=== PATIENT | female | born 1980 | race Native Hawaiian/Other Pacific Islander ===

== ENCOUNTER 2018-04-08 22:48 | Inpatient (IN) | payer OTHER ==
[2018-04-08] MEDS ORDERED: ACTIVASE IV ONE ×2 (22:58)
[2018-04-08] MEDS ORDERED: NACL 0.9% IV ONE (22:58)
--- NOTE | 2018-04-08 23:04 | Emergency Department Report ---
ED Neuro Deficit HPI - General Stated Complaint: POSSIBLE CVA Time Seen by Provider: 04/08/18 22:54 Source: family, old records reviewed - History of Present Illness Initial Comments: Mrs. Parham presents with stroke symptoms. Left sided paralysis began this evening. Approximate time of onset 8:00 PM or 8:30 PM. She spoke with her mother by the phone who realized that she had abnormal speech. Unclear time of onset. The patient was with her autistic child who gave only limited hx. EMS was called at 855. stated that she was stressed after an evaluation of her autistic child today. Patient has a history of hypertension unable to recall medications. Due to aphasia and altered mental status, patient unable to give medical history. In 2014, patient was evaluated for left-sided hemiparesis and global aphasia. These symptoms occurred after she discovered her being unfaithful. She left the ER AGAINST MEDICAL ADVICE after her symptoms resolved. TPA was being considered according to the chart. Previous medical record found under the name Maranda Clark [id number] - Related Data Allergies/Adverse Reactions: Allergies Allergy/AdvReac Type Severity Reaction Status Date / Time No Known Allergies Allergy Unverified 04/08/18 22:52 ED Review of Systems ROS: Stated complaint: POSSIBLE CVA Other details as noted in HPI Comment: Unobtainable due to pts medical conditions ED Past Medical Hx - Past Medical History Hx Hypertension: Yes - Social History Smoking Status: Never Smoker Substance Use Type: None ED Neuro Physical Exam - General Limitations: Language Barrier, Altered Mental Status General appearance: alert, other (drooling left facial droop repeatedly calls out the "Bernard") Suspected Stroke: Yes - Head Head exam: Present: atraumatic, normocephalic - Eye Eye exam: Present: PERRL, other. Absent: scleral icterus, conjunctival injection Pupils: Present: normal accommodation - ENT ENT exam: Present: mucous membranes dry, mucous membranes moist - Neck Neck exam: Present: normal inspection. Absent: tenderness, meningismus - Respiratory Respiratory exam: Present: normal lung sounds bilaterally. Absent: respiratory distress, wheezes, rales, rhonchi - Cardiovascular Cardiovascular Exam: Present: regular rate, normal rhythm, normal heart sounds - GI/Abdominal GI/Abdominal exam: Present: soft. Absent: distended, tenderness, guarding, rebound - Extremities Exam Extremities exam: Present: normal inspection. Absent: tenderness - Neurological Exam Neurological exam: Present: alert, altered - NIHSS Assessment Interval: Baseline 1a. Level of Consciousness: alert 1b. LOC Questions: answers no questions correctly 1c. LOC Commands: performs no tasks correctly 2. Best Gaze: partial gaze palsy 3. Visual: no visual loss 4. Facial Palsy: partial paralysis 5b. Motor Arm Right: no drift 5a. Motor Arm Left: some gravity effort 6a. Motor Leg Left: some gravity effort 6b. Motor Leg Right: no drift 7. Limb Ataxia: absent 8. Sensory: normal 9. Best Language: mute/global aphasia 10. Dysarthria: severe dysarthria 11. Extinction/Inattention: profound inattention - Psychiatric Psychiatric exam: Present: anxious - Skin Skin exam: Present: warm, dry, intact, normal color ED Course Vital Signs 04/08/18 04/08/18 04/08/18 23:07 23:16 23:28 Temperature Pulse Rate 89 86 Respiratory 22 18 Rate Blood Pressure 139/90 139/90 145/101 Blood Pressure [Right] O2 Sat by Pulse 100 100 Oximetry 04/08/18 04/08/18 04/08/18 23:30 23:31 23:35 Temperature 97.6 F 97.6 F Pulse Rate 88 77 74 Respiratory 26 H 26 H Rate Blood Pressure 145/101 139/60 Blood Pressure 139/60 [Right] O2 Sat by Pulse 99 98 Oximetry 04/08/18 04/09/18 04/09/18 23:46 00:00 00:34 Temperature Pulse Rate 89 83 81 Respiratory 19 20 18 Rate Blood Pressure 139/90 130/89 134/85 Blood Pressure [Right] O2 Sat by Pulse 98 96 99 Oximetry 04/09/18 04/09/18 00:46 01:00 Temperature Pulse Rate 82 84 Respiratory 21 15 Rate Blood Pressure 134/85 134/85 Blood Pressure [Right] O2 Sat by Pulse 99 98 Oximetry - Lab Data Result diagrams: 04/08/18 23:00 04/08/18 23:00 Lab Results 04/08/18 04/08/18 04/08/18 Range/Units 23:00 23:00 23:00 WBC 9.8 (4.5-11.0) K/mm3 RBC 4.38 (3.65-5.03) M/mm3 Hgb 14.2 (10.1-14.3) gm/dl Hct 42.1 (30.3-42.9) % MCV 96 (79-97) fl MCH 33 H (28-32) pg MCHC 34 (30-34) % RDW 12.8 L (13.2-15.2) % Plt Count 305 (140-440) K/mm3 Lymph % (Auto) 27.4 (13.4-35.0) % [place] % (Auto) 8.3 H (0.0-7.3) % Eos % (Auto) 1.1 (0.0-4.3) % Baso % (Auto) 0.5 (0.0-1.8) % Lymph # 2.7 (1.2-5.4) K/mm3 [place] # 0.8 (0.0-0.8) K/mm3 Eos # 0.1 (0.0-0.4) K/mm3 Baso # 0.0 (0.0-0.1) K/mm3 Seg Neutrophils % 62.7 (40.0-70.0) % Seg Neutrophils # 6.2 (1.8-7.7) K/mm3 PT 12.2 (12.2-14.9) Sec. INR 0.87 (0.87-1.13) APTT 26.4 (24.2-36.6) Sec. Thrombin Time (15.1-19.6) Sec. Sodium 140 (137-145) mmol/L Potassium 3.8 (3.6-5.0) mmol/L Chloride 101.9 (98-107) mmol/L Carbon Dioxide 23 (22-30) mmol/L Anion Gap 19 mmol/L BUN 7 (7-17) mg/dL Creatinine 0.5 L (0.7-1.2) mg/dL Estimated GFR > 60 ml/min BUN/Creatinine Ratio 14 % Glucose 102 H (65-100) mg/dL Calcium 9.4 (8.4-10.2) mg/dL Troponin T < 0.010 (0.00-0.029) ng/mL HCG, Qual (Negative) 04/08/18 04/09/18 Range/Units 23:00 00:10 WBC (4.5-11.0) K/mm3 RBC (3.65-5.03) M/mm3 Hgb (10.1-14.3) gm/dl Hct (30.3-42.9) % MCV (79-97) fl MCH (28-32) pg MCHC (30-34) % RDW (13.2-15.2) % Plt Count (140-440) K/mm3 Lymph % (Auto) (13.4-35.0) % [place] % (Auto) (0.0-7.3) % Eos % (Auto) (0.0-4.3) % Baso % (Auto) (0.0-1.8) % Lymph # (1.2-5.4) K/mm3 [place] # (0.0-0.8) K/mm3 Eos # (0.0-0.4) K/mm3 Baso # (0.0-0.1) K/mm3 Seg Neutrophils % (40.0-70.0) % Seg Neutrophils # (1.8-7.7) K/mm3 PT (12.2-14.9) Sec. INR (0.87-1.13) APTT (24.2-36.6) Sec. Thrombin Time 16.6 (15.1-19.6) Sec. Sodium (137-145) mmol/L Potassium (3.6-5.0) mmol/L Chloride (98-107) mmol/L Carbon Dioxide (22-30) mmol/L Anion Gap mmol/L BUN (7-17) mg/dL Creatinine (0.7-1.2) mg/dL Estimated GFR ml/min BUN/Creatinine Ratio % Glucose (65-100) mg/dL Calcium (8.4-10.2) mg/dL Troponin T (0.00-0.029) ng/mL HCG, Qual Negative (Negative) 04/08/18 23:33 NSR nl rate nl axis nl intervals no ST-T signs of ischemia no ST elevation rate 90 beats a minute - Medical Decision Making Ms. Clark presents with stroke symptoms of left hemiparesis, aphasia and dysarthria. She had similar presentation in 2014 after stressful situation. I highly appreciate assistance of neurologist Dr. Frank who evaluated her through teleconference. She appears anxious with repetitive speech. She only is able to say the name of her son. We did consider tPA. However TP is not indicated due to several factors. Unclear time of onset. Unable to otain names of medications. Strong possibility of alternative diagnoses such as conversion disorder vs seizure. Considering the convincing physical exam which confounded both myself and the neurologist, Mrs. Clark will be admitted for further neurological evaluation. I discussed case with admitting hospitalist Dr. Clark. Critical Care Time: Yes Critical care time in (mins) excluding proc time.: 45 Critical care attestation.: If time is entered above; I have spent that time in minutes in the direct care of this critically ill patient, excluding procedure time. ED Disposition Clinical Impression: Left-sided weakness, Aphasia Disposition: 09 OP ADMIT IP TO THIS HOSP Is pt being admited?: Yes Does the pt Need Aspirin: No Condition: Stable Time of Disposition: 01:59
[2018-04-08 23:15] LABS: Basophils % (Auto) 0.5 % (0.0-1.8); Eosinophils # (Auto) 0.1 K/mm3 (0.0-0.4); Eosinophils % (Auto) 1.1 % (0.0-4.3); Hematocrit 42.1 % (30.3-42.9); Hemoglobin 14.2 gm/dl (10.1-14.3); Lymphocytes # (Auto) 2.7 K/mm3 (1.2-5.4); Lymphocytes % (Auto) 27.4 % (13.4-35.0); Mean Corpuscular HGB Conc 34 % (30-34); Mean Corpuscular Hemoglobin 33 pg (28-32); Mean Corpuscular Volume 96 fl (79-97); Monocytes # (Auto) 0.8 K/mm3 (0.0-0.8); Monocytes % (Auto) 8.3 % (0.0-7.3); Platelet Count 305 K/mm3 (140-440); Red Blood Count 4.38 M/mm3 (3.65-5.03); Red Cell Distribution Width 12.8 % (13.2-15.2)
--- NOTE | 2018-04-08 23:18 | Cat Scan Report ---
FINAL REPORT PROCEDURE: CT HEAD/BRAIN WO CON TECHNIQUE: Computerized tomography of the head was performed without contrast material. HISTORY: neuro deficits < 6hrs or sx present upon awakening COMPARISON: No prior studies are available for comparison. FINDINGS: Skull and scalp: Normal. Paranasal sinuses: Normal. Ventricles and subarachnoid spaces: Normal. Cerebrum: No evidence of hemorrhage, acute infarction or mass . Cerebellum and brainstem: No evidence of hemorrhage, acute infarction or mass. Vasculature: Normal. Comments: None. IMPRESSION: Normal Examination. Relayed stroke alert result to Dr. Betancourt at 11:10pm.
[2018-04-08 23:27] LABS: BUN/Creatinine Ratio 14; Blood Urea Nitrogen 7 mg/dL (7-17); Calcium 9.4 mg/dL (8.4-10.2); Hemolysis Index 9; INR 0.87 (0.87-1.13)
[2018-04-08 23:28] LABS: Partial Thromboplastin Time 26.4 Sec. (24.2-36.6)
--- NOTE | 2018-04-09 01:02 | Cat Scan Report ---
FINAL REPORT PROCEDURE: CT ANGIO HEAD TECHNIQUE: Computerized tomographic angiography of the head was performed after the IV injection of iodinated nonionic contrast including image processing. The image data was postprocessed using 2-dimensional multiplanar reformatted (MPR) and 3-dimensional (MIP and/or volume rendered) techniques. HISTORY: acute CVA COMPARISON: No prior studies are available for comparison. FINDINGS: Cerebrum: No evidence of hemorrhage, acute ischemia or mass. Cerebellum: No evidence of hemorrhage, acute ischemia or mass. Subarachnoid spaces and ventricles: Normal. Intracranial vessels: Carotid siphon: Normal. Anterior cerebral: Normal. Middle cerebral: Normal. Posterior cerebral:Normal. Vertebral arteries including basilar: The right vertebral artery is dominant. Aneurysms: None. Dural sinuses: Normal. IMPRESSION: There is no intracranial arterial stenosis, thrombosis or aneurysm. There is no vascular malformation.
--- NOTE | 2018-04-09 01:08 | Cat Scan Report ---
FINAL REPORT PROCEDURE: CT ANGIO NECK TECHNIQUE: Computerized tomographic angiography of the neck was performed after the IV injection of iodinated nonionic contrast including image processing. The image data was postprocessed using 2-dimensional multiplanar reformatted (MPR) and 3-dimensional (MIP and/or volume rendered) techniques. HISTORY: acute CVA COMPARISON: No prior studies are available for comparison. Note: Assessment of carotid artery stenosis is based on measurement of the distal internal carotid artery diameter as the denominator for stenosis calculations and the [place] Symptomatic Carotid Endarterectomy Trial (NASCET) stenosis criteria . CPT 3100F FINDINGS: Sinuses: Normal . Non vascular cervical structures: No significant abnormality . Aortic arch: Normal . Right carotid artery: Normal . Left carotid artery: Normal . Vertebral arteries: The right vertebral artery is dominant.. IMPRESSION: Normal Examination
[2018-04-09] MEDS ORDERED: ASPIRIN ONE (01:51)
[2018-04-09] MEDS ORDERED: BABY ASPIRIN PO ONE (02:00)
[2018-04-09] MEDS ORDERED: TYLENOL ONE (02:12)
[2018-04-09] MEDS ORDERED: SODIUM CHLORIDE FLUSH SYRINGE 10 ML IV PRN ×2 (03:14→03:16)
[2018-04-09] MEDS ORDERED: MORPHINE IV PRN (03:14)
[2018-04-09] MEDS ORDERED: ZOFRAN IV PRN (03:14)
[2018-04-09] MEDS ORDERED: SODIUM CHLORIDE FLUSH SYRINGE 10 ML INJ PRN ×2 (03:22→03:25)
[2018-04-09] MEDS: TYLENOL PO PRN ×3 (03:56→19:53)
[2018-04-09] MEDS ORDERED: NACL 0.9% 1000 ML 1,000 ML IV SCH (04:00)
--- NOTE | 2018-04-09 07:16 | History and Physical Report ---
History of Present Illness Date of examination: 04/09/18 Date of admission: 04/09/18 02:00 Chief complaint: CC Left Sided weakness since 830 pm History of present illness: History of Present Illness: 37 y/o presents with stroke symptoms. Left sided paralysis began this evening. Approximate time of onset 8:00 PM or 8:30 PM. She spoke with her mother by the phone who realized that she had abnormal speech. Unclear time of onset. The patient was with her autistic child who gave only limited hx. EMS was called at 855. stated that she was stressed after an evaluation of her autistic child today. Patient has a history of hypertension unable to recall medications. Due to aphasia and altered mental status, patient unable to give medical history. In 2014, patient was evaluated for left-sided hemiparesis and global aphasia. These symptoms occurred after she discovered her being unfaithful. She left the ER AGAINST MEDICAL ADVICE after her symptoms resolved. TPA was being considered according to the chart. Previous medical record found under the name Maranda Clark [id number] Past Medical History Hypertension: Yes Social History Smoking Status: Never Smoker Substance Use Type: None Family History: Htn Surgery History: Unavailable Review of Systems ROS: Stated complaint: POSSIBLE CVA Other details as noted in HPI Comment: Unobtainable due to pts medical conditions Medications and Allergies Allergies Allergy/AdvReac Type Severity Reaction Status Date / Time No Known Allergies Allergy Unverified 04/08/18 22:52 Active Meds: Active Medications Acetaminophen (Tylenol) 650 mg PO Q4H PRN PRN Reason: Pain MILD(1-3)/Fever >100.5/COLÓN Last Admin: 04/09/18 03:56 Dose: 650 mg Aspirin (Aspirin) 325 mg PO QDAY STEPHANIA Sodium Chloride (Nacl 0.9% 1000 Ml) 1,000 mls @ 100 mls/hr IV DIRECT STEPHANIA Morphine Sulfate (Morphine) 2 mg IV Q4H PRN PRN Reason: Pain, Moderate (4-6) Ondansetron HCl (Zofran) 4 mg IV Q8H PRN PRN Reason: Nausea And Vomiting Sodium Chloride (Sodium Chloride Flush Syringe 10 Ml) 10 ml IV BID STEPHANIA Sodium Chloride (Sodium Chloride Flush Syringe 10 Ml) 10 ml IV PRN PRN PRN Reason: LINE FLUSH Exam - Constitutional Vitals: Temp Pulse Resp BP Pulse Ox 98.2 F 60 18 117/81 97 04/09/18 05:33 04/09/18 05:33 04/09/18 05:33 04/09/18 05:33 04/09/18 05:33 General appearance: Present: no acute distress, well-nourished - EENT Eyes: Present: PERRL ENT: hearing intact, clear oral mucosa - Neck Neck: Present: supple, normal ROM - Respiratory Respiratory effort: normal Respiratory: bilateral: CTA - Cardiovascular Heart rate: 76 Heart Sounds: Present: S1 & S2. Absent: rub, click - Extremities Extremities: no ischemia, pulses symmetrical, No edema Peripheral Pulses: within normal limits - Abdominal General gastrointestinal: Present: soft, non-tender, non-distended, normal bowel sounds Female genitourinary: Present: normal - Rectal Rectal Exam: deferred - Integumentary Integumentary: Present: clear, warm, dry - Musculoskeletal Musculoskeletal: left sided weakness (3/5 power) - Psychiatric Psychiatric: appropriate mood/affect, intact judgment & insight - Neurologic Neurologic: CNII-XII intact, moves all extremities - Allied Health Allied health notes reviewed: nursing, case management Results - Labs CBC & Chem 7: 04/08/18 23:00 04/08/18 23:00 Labs: Laboratory Last Values WBC 9.8 K/mm3 (4.5-11.0) 04/08/18 23:00 RBC 4.38 M/mm3 (3.65-5.03) 04/08/18 23:00 Hgb 14.2 gm/dl (10.1-14.3) 04/08/18 23:00 Hct 42.1 % (30.3-42.9) 04/08/18 23:00 MCV 96 fl (79-97) 04/08/18 23:00 MCH 33 pg (28-32) H 04/08/18 23:00 MCHC 34 % (30-34) 04/08/18 23:00 RDW 12.8 % (13.2-15.2) L 04/08/18 23:00 Plt Count 305 K/mm3 (140-440) 04/08/18 23:00 Lymph % (Auto) 27.4 % (13.4-35.0) 04/08/18 23:00 [place] % (Auto) 8.3 % (0.0-7.3) H 04/08/18 23:00 Eos % (Auto) 1.1 % (0.0-4.3) 04/08/18 23:00 Baso % (Auto) 0.5 % (0.0-1.8) 04/08/18 23:00 Lymph # 2.7 K/mm3 (1.2-5.4) 04/08/18 23:00 [place] # 0.8 K/mm3 (0.0-0.8) 04/08/18 23:00 Eos # 0.1 K/mm3 (0.0-0.4) 04/08/18 23:00 Baso # 0.0 K/mm3 (0.0-0.1) 04/08/18 23:00 Seg Neutrophils % 62.7 % (40.0-70.0) 04/08/18 23:00 Seg Neutrophils # 6.2 K/mm3 (1.8-7.7) 04/08/18 23:00 PT 12.2 Sec. (12.2-14.9) 04/08/18 23:00 INR 0.87 (0.87-1.13) 04/08/18 23:00 APTT 26.4 Sec. (24.2-36.6) 04/08/18 23:00 Thrombin Time 16.6 Sec. (15.1-19.6) 04/08/18 23:00 Sodium 140 mmol/L (137-145) 04/08/18 23:00 Potassium 3.8 mmol/L (3.6-5.0) 04/08/18 23:00 Chloride 101.9 mmol/L (98-107) 04/08/18 23:00 Carbon Dioxide 23 mmol/L (22-30) 04/08/18 23:00 Anion Gap 19 mmol/L 04/08/18 23:00 BUN 7 mg/dL (7-17) 04/08/18 23:00 Creatinine 0.5 mg/dL (0.7-1.2) L 04/08/18 23:00 Estimated GFR > 60 ml/min 04/08/18 23:00 BUN/Creatinine Ratio 14 % 04/08/18 23:00 Glucose 102 mg/dL (65-100) H 04/08/18 23:00 Hemoglobin A1c 5.3 % (4-6) 04/09/18 05:06 Calcium 9.4 mg/dL (8.4-10.2) 04/08/18 23:00 Troponin T < 0.010 ng/mL (0.00-0.029) 04/08/18 23:00 HCG, Qual Negative (Negative) 04/09/18 00:10 - Imaging and Cardiology EKG: report reviewed (NSR) Assessment and Plan Advance Directives: Yes (Full code) VTE prophylaxis?: Chemical Plan of care discussed with patient/family: Yes - Patient Problems (1) CVA (cerebral vascular accident) Current Visit: Yes Status: Acute Qualifiers: CVA mechanism: unspecified Qualified Code(s): I63.9 - Cerebral infarction, unspecified Plan to address problem: History and presentation more in favor of conversion reaction CVA w/ ordered Neurology consult requested (2) HTN (hypertension) Current Visit: Yes Status: Chronic Qualifiers: Hypertension type: essential hypertension Qualified Code(s): I10 - Essential (primary) hypertension Plan to address problem: HTN by history BP readings over last few hours normal. Initiate antihypertensives if necessary (3) DVT prophylaxis Current Visit: Yes Status: Acute Plan to address problem: On Lovenox
[2018-04-09] MEDS: ASPIRIN PO SCH (09:36)
[2018-04-09] MEDS: SODIUM CHLORIDE FLUSH SYRINGE 10 ML IV SCH ×2 (09:36→21:46)
--- NOTE | 2018-04-09 09:57 | Progress Note ---
Assessment and Plan Assessment and plan: CVA. Neurology consultation pending. Patient may have conversion reaction due to stressful event. Patient is similar episode in 2015. Follow-up CVA workup. Hypertension. Continue hypertensive medications. DVT prophylaxis. Continue Lovenox. History Interval history: No new issues overnight. Hospitalist Physical - Constitutional Vitals: Temp Pulse Resp BP Pulse Ox 98.2 F 60 20 117/81 97 04/09/18 05:33 04/09/18 05:33 04/09/18 08:34 04/09/18 05:33 04/09/18 05:33 General appearance: Present: no acute distress, well-nourished - EENT Eyes: Present: PERRL, EOM intact ENT: hearing intact, clear oral mucosa, dentition normal - Neck Neck: Present: supple, normal ROM - Respiratory Respiratory effort: normal Respiratory: bilateral: CTA - Cardiovascular Rhythm: regular Heart Sounds: Present: S1 & S2. Absent: gallop, rub - Extremities Extremities: no ischemia, No edema, Full ROM - Abdominal General gastrointestinal: soft, non-tender, non-distended, normal bowel sounds - Integumentary Integumentary: Present: clear, warm, dry - Neurologic Neurologic: CNII-XII intact, moves all extremities Results - Labs CBC & Chem 7: 04/08/18 23:00 04/08/18 23:00 Labs: Laboratory Last Values WBC 9.8 K/mm3 (4.5-11.0) 04/08/18 23:00 RBC 4.38 M/mm3 (3.65-5.03) 04/08/18 23:00 Hgb 14.2 gm/dl (10.1-14.3) 04/08/18 23:00 Hct 42.1 % (30.3-42.9) 04/08/18 23:00 MCV 96 fl (79-97) 04/08/18 23:00 MCH 33 pg (28-32) H 04/08/18 23:00 MCHC 34 % (30-34) 04/08/18 23:00 RDW 12.8 % (13.2-15.2) L 04/08/18 23:00 Plt Count 305 K/mm3 (140-440) 04/08/18 23:00 Lymph % (Auto) 27.4 % (13.4-35.0) 04/08/18 23:00 [place] % (Auto) 8.3 % (0.0-7.3) H 04/08/18 23:00 Eos % (Auto) 1.1 % (0.0-4.3) 04/08/18 23:00 Baso % (Auto) 0.5 % (0.0-1.8) 04/08/18 23:00 Lymph # 2.7 K/mm3 (1.2-5.4) 04/08/18 23:00 [place] # 0.8 K/mm3 (0.0-0.8) 04/08/18 23:00 Eos # 0.1 K/mm3 (0.0-0.4) 04/08/18 23:00 Baso # 0.0 K/mm3 (0.0-0.1) 04/08/18 23:00 Seg Neutrophils % 62.7 % (40.0-70.0) 04/08/18 23:00 Seg Neutrophils # 6.2 K/mm3 (1.8-7.7) 04/08/18 23:00 PT 12.2 Sec. (12.2-14.9) 04/08/18 23:00 INR 0.87 (0.87-1.13) 04/08/18 23:00 APTT 26.4 Sec. (24.2-36.6) 04/08/18 23:00 Thrombin Time 16.6 Sec. (15.1-19.6) 04/08/18 23:00 Sodium 140 mmol/L (137-145) 04/08/18 23:00 Potassium 3.8 mmol/L (3.6-5.0) 04/08/18 23:00 Chloride 101.9 mmol/L (98-107) 04/08/18 23:00 Carbon Dioxide 23 mmol/L (22-30) 04/08/18 23:00 Anion Gap 19 mmol/L 04/08/18 23:00 BUN 7 mg/dL (7-17) 04/08/18 23:00 Creatinine 0.5 mg/dL (0.7-1.2) L 04/08/18 23:00 Estimated GFR > 60 ml/min 04/08/18 23:00 BUN/Creatinine Ratio 14 % 04/08/18 23:00 Glucose 102 mg/dL (65-100) H 04/08/18 23:00 Hemoglobin A1c 5.3 % (4-6) 04/09/18 05:06 Calcium 9.4 mg/dL (8.4-10.2) 04/08/18 23:00 Troponin T < 0.010 ng/mL (0.00-0.029) 04/08/18 23:00 HCG, Qual Negative (Negative) 04/09/18 00:10
[2018-04-10 05:14] LABS: Basophils % (Auto) 0.6 % (0.0-1.8); Eosinophils # (Auto) 0.1 K/mm3 (0.0-0.4); Eosinophils % (Auto) 1.9 % (0.0-4.3); Hematocrit 38.1 % (30.3-42.9); Hemoglobin 13.1 gm/dl (10.1-14.3); Lymphocytes # (Auto) 2.9 K/mm3 (1.2-5.4); Lymphocytes % (Auto) 42.7 % (13.4-35.0); Mean Corpuscular HGB Conc 34 % (30-34); Mean Corpuscular Hemoglobin 33 pg (28-32); Mean Corpuscular Volume 96 fl (79-97); Monocytes # (Auto) 0.5 K/mm3 (0.0-0.8); Monocytes % (Auto) 7.5 % (0.0-7.3); Platelet Count 254 K/mm3 (140-440); Red Blood Count 3.96 M/mm3 (3.65-5.03); Red Cell Distribution Width 13.3 % (13.2-15.2)
[2018-04-10 05:41] LABS: Alanine Aminotransferase 36 units/L (7-56); Albumin 3.5 g/dL (3.9-5); BUN/Creatinine Ratio 12; Blood Urea Nitrogen 6 mg/dL (7-17); Calcium 8.4 mg/dL (8.4-10.2); Chol/HDL Ratio 3.55 %; HDL Cholesterol 40 mg/dL (40-59); Hemolysis Index 6; LDL Cholesterol,Direct 97 mg/dL (50-130)
[2018-04-10] MEDS ORDERED: LOVENOX SUB-Q SCH ×2 (10:00)
[2018-04-10] MEDS: ASPIRIN PO SCH (10:13)
[2018-04-10] MEDS: SODIUM CHLORIDE FLUSH SYRINGE 10 ML IV SCH (10:14)
--- NOTE | 2018-04-10 12:05 | Progress Note ---
Assessment and Plan Assessment and plan: CVA. Patient may have conversion reaction due to stressful event. Patient is similar episode in 2015. Follow-up CVA workup. Psychiatric consultation. Hypertension. Continue hypertensive medications. DVT prophylaxis. Continue Lovenox. History Interval history: No new issues overnight. Hospitalist Physical - Constitutional Vitals: Temp Pulse Resp BP Pulse Ox 97.9 F 62 16 107/76 100 04/10/18 07:49 04/10/18 07:49 04/10/18 07:49 04/10/18 07:49 04/10/18 07:49 General appearance: Present: no acute distress, well-nourished - EENT Eyes: Present: PERRL, EOM intact ENT: hearing intact, clear oral mucosa, dentition normal - Neck Neck: Present: supple, normal ROM - Respiratory Respiratory effort: normal Respiratory: bilateral: CTA - Cardiovascular Rhythm: regular Heart Sounds: Present: S1 & S2. Absent: gallop, rub - Extremities Extremities: no ischemia, No edema, Full ROM - Abdominal General gastrointestinal: soft, non-tender, non-distended, normal bowel sounds - Integumentary Integumentary: Present: clear, warm, dry - Neurologic Neurologic: CNII-XII intact, moves all extremities Results - Labs CBC & Chem 7: 04/10/18 04:57 04/10/18 04:57 Labs: Laboratory Last Values WBC 6.8 K/mm3 (4.5-11.0) 04/10/18 04:57 RBC 3.96 M/mm3 (3.65-5.03) 04/10/18 04:57 Hgb 13.1 gm/dl (10.1-14.3) 04/10/18 04:57 Hct 38.1 % (30.3-42.9) 04/10/18 04:57 MCV 96 fl (79-97) 04/10/18 04:57 MCH 33 pg (28-32) H 04/10/18 04:57 MCHC 34 % (30-34) 04/10/18 04:57 RDW 13.3 % (13.2-15.2) 04/10/18 04:57 Plt Count 254 K/mm3 (140-440) 04/10/18 04:57 Lymph % (Auto) 42.7 % (13.4-35.0) H 04/10/18 04:57 [place] % (Auto) 7.5 % (0.0-7.3) H 04/10/18 04:57 Eos % (Auto) 1.9 % (0.0-4.3) 04/10/18 04:57 Baso % (Auto) 0.6 % (0.0-1.8) 04/10/18 04:57 Lymph # 2.9 K/mm3 (1.2-5.4) 04/10/18 04:57 [place] # 0.5 K/mm3 (0.0-0.8) 04/10/18 04:57 Eos # 0.1 K/mm3 (0.0-0.4) 04/10/18 04:57 Baso # 0.0 K/mm3 (0.0-0.1) 04/10/18 04:57 Seg Neutrophils % 47.3 % (40.0-70.0) 04/10/18 04:57 Seg Neutrophils # 3.2 K/mm3 (1.8-7.7) 04/10/18 04:57 PT 12.2 Sec. (12.2-14.9) 04/08/18 23:00 INR 0.87 (0.87-1.13) 04/08/18 23:00 APTT 26.4 Sec. (24.2-36.6) 04/08/18 23:00 Thrombin Time 16.6 Sec. (15.1-19.6) 04/08/18 23:00 Sodium 140 mmol/L (137-145) 04/10/18 04:57 Potassium 3.6 mmol/L (3.6-5.0) 04/10/18 04:57 Chloride 104.9 mmol/L (98-107) 04/10/18 04:57 Carbon Dioxide 22 mmol/L (22-30) 04/10/18 04:57 Anion Gap 17 mmol/L 04/10/18 04:57 BUN 6 mg/dL (7-17) L 04/10/18 04:57 Creatinine 0.5 mg/dL (0.7-1.2) L 04/10/18 04:57 Estimated GFR > 60 ml/min 04/10/18 04:57 BUN/Creatinine Ratio 12 % 04/10/18 04:57 Glucose 90 mg/dL (65-100) 04/10/18 04:57 Hemoglobin A1c 5.3 % (4-6) 04/09/18 05:06 Calcium 8.4 mg/dL (8.4-10.2) 04/10/18 04:57 Total Bilirubin 0.40 mg/dL (0.1-1.2) 04/10/18 04:57 AST 27 units/L (5-40) 04/10/18 04:57 ALT 36 units/L (7-56) 04/10/18 04:57 Alkaline Phosphatase 77 units/L (35-129) 04/10/18 04:57 Troponin T < 0.010 ng/mL (0.00-0.029) 04/08/18 23:00 Total Protein 6.7 g/dL (6.3-8.2) 04/10/18 04:57 Albumin 3.5 g/dL (3.9-5) L 04/10/18 04:57 Albumin/Globulin Ratio 1.1 % 04/10/18 04:57 Triglycerides 108 mg/dL (2-149) 04/10/18 04:57 Cholesterol 142 mg/dL (50-199) 04/10/18 04:57 LDL Cholesterol Direct 97 mg/dL (50-130) 04/10/18 04:57 HDL Cholesterol 40 mg/dL (40-59) 04/10/18 04:57 Cholesterol/HDL Ratio 3.55 % 04/10/18 04:57 HCG, Qual Negative (Negative) 04/09/18 00:10
[2018-04-10 13:23] VITALS: BP 107/80
--- NOTE | 2018-04-11 12:25 | Discharge Summary ---
Providers - Providers Date of Admission: 04/09/18 02:00 Date of discharge: 04/10/18 Attending physician: REBECCA VIRAMONTES 04/09/18 03:16 Occupational Therapy Evaluate and Treat [CONS] Routine Comment: Reason For Exam: Neuro deficits Physical Therapy Evaluation and Treat [CONS] Routine Comment: Reason For Exam: Neuro deficits 04/09/18 03:22 Occupational Therapy Evaluate and Treat [CONS] Routine Comment: Reason For Exam: Neuro deficits Physical Therapy Evaluation and Treat [CONS] Routine Comment: Reason For Exam: Neuro deficits 04/09/18 03:25 Occupational Therapy Evaluate and Treat [CONS] Routine Comment: Reason For Exam: Neuro deficits Physical Therapy Evaluation and Treat [CONS] Routine Comment: Reason For Exam: Neuro deficits 04/10/18 08:54 Consult to Mental Health [CONS] Routine Reason For Exam: ? conversion d/o Place consult to:: Mental Health Notified:: Ashlie POLK Phone number called:: [phone]. [phone] Was contact made?: Yes If yes, spoke with:: [facility] Time called:: 13:51 Primary care physician: SENIOR OFFICE SUPPORT ASSISTANT [facility] Hospitalization Reason for admission: CVA Condition: Stable Hospital course: This is a 37-year-old female who presented through the emergency department with complaints of left sided hemiparesis. The patient was admitted with diagnosis of CVA and global aphasia. Patient's symptoms however were not consistent with CVA and there was some suspicion of conversion disorder. Patient had MRI/MRA, CT scan and carotid Dopplers that were negative. Echocardiogram was normal with negative bubble study. Psychiatric consultation was obtained. However, patient left AMA. Dedicated discharge time 32 minutes. Disposition: DC-07 LEFT AGAINST MED ADVICE Core Measure Documentation - Palliative Care Palliative Care/ Comfort Measures: Not Applicable - Core Measures Any of the following diagnoses?: stroke - Stroke Discharge Requirements Statin for LDL = or >70 mg/dl on DC: No Reason for no statin on DC: Patient Refusal Anticoag for atrial fib/atrial flutter: Not Applicable Reason for no anticoag for AF/F on DC: Patient Refusal Antithrombotic for ischemic stroke: No Reason for no antithrombotic on DC: Patient Refusal Exam - Constitutional Vitals: Temp Pulse Resp BP Pulse Ox 97.9 F 77 18 107/80 100 04/10/18 12:31 04/10/18 12:31 04/10/18 12:31 04/10/18 12:31 04/10/18 12:31 General appearance: Present: no acute distress, well-nourished - EENT Eyes: Present: PERRL ENT: hearing intact, clear oral mucosa - Neck Neck: Present: supple, normal ROM - Respiratory Respiratory effort: normal Respiratory: bilateral: CTA - Cardiovascular Heart Sounds: Present: S1 & S2. Absent: rub, click - Extremities Extremities: pulses symmetrical, No edema Peripheral Pulses: within normal limits - Abdominal General gastrointestinal: Present: soft, non-tender, non-distended, normal bowel sounds Female genitourinary: Present: normal - Integumentary Integumentary: Present: clear, warm, dry - Musculoskeletal Musculoskeletal: gait normal, strength equal bilaterally - Psychiatric Psychiatric: appropriate mood/affect, intact judgment & insight - Neurologic Neurologic: CNII-XII intact, moves all extremities Plan Activity: other (AMA) Weight Bearing Status: Weight Bear as Tolerated Follow up with: PRIMARY CARE, [Primary Care Provider] - 7 Days Forms: AMA Form
--- NOTE | 2018-04-12 07:49 | Magnetic Resonance Report ---
MRA HEAD WITHOUT CONTRAST HISTORY: Stroke. [id number] imaging with MIP reformations of the [place] of [place] is submitted. The cerebral arteries appear widely patent and free of hemodynamically significant stenosis, aneurysm or dissection. origin of the right [employer] is noted. The right vertebral artery is dominant. IMPRESSION: Normal variant MRA head.
--- NOTE | 2018-04-12 07:52 | Magnetic Resonance Report ---
MRI OF THE BRAIN WITHOUT CONTRAST: HISTORY: CVA PROCEDURE: Multiplanar, multisequence MR imaging of the brain without IV contrast was performed. COMMENT: This examination is just presented to me for interpretation. FINDINGS: The brain parenchyma signal intensity and its cabrera white interface are within normal limits on all sequences. No evidence for acute ischemia, hemorrhage or mass. No chronic infarct or extra-axial fluid collection. The midline structures are central. The basal cisterns are patent. Normal ventricular size. Pineal calcifications are noted. The orbital cavities and sella turcica demonstrate no abnormality. The visualized paranasal sinuses and mastoid air cells are well aerated. IMPRESSION: Unremarkable non-enhanced MRI of the brain.
== END 2018-04-10 15:03 | disposition left against medical advice (07) | DRG 62 ==
LOC: ED 22:48 → 4A 04-09 02:00
PROVIDERS: ADMIT Internal Medicine; ATTEND Hospitalist
DX: I63.9 Cerebral infarction, unspecified (principal); G81.94 Hemiplegia, unspecified affecting left nondominant side; R47.01 Aphasia; I10 Essential (primary) hypertension; F44.4 Conversion disorder with motor symptom or deficit; Z82.49 Family history of ischemic heart disease and other diseases of the circulatory system
CPT/HCPCS: 36415; 70450; 70496; 70498; 70544; 70551; 80048; 80053; 80061; 83036; 84484; 84703; 85025; 85610; 85670; 85730; 93005; 93010; 93306; 93880; A9270-GY; J1650; J7030; Q9967